=== PATIENT | female | born 1995 | race Two or more races ===

== ENCOUNTER 2016-05-12 16:22 | Emergency (ER) | payer OTHER ==
[~2016-05-12] VITALS: Ht 170.2 cm; Wt 81.6 kg
[2016-05-12 16:42] VITALS: BP 113/79
[2016-05-12] MEDS ORDERED: ALBUTEROL FS 2.5 MG/3 ML VIAL.NEB NEB ONE (17:00)
[2016-05-12] MEDS ORDERED: predniSONE 20 MG TABLET PO ONE (17:00)
[2016-05-12] MEDS ORDERED: ALBUTEROL FS 2.5 MG/3 ML VIAL.NEB ONE (17:18)
[2016-05-12] MEDS ORDERED: predniSONE 20 MG TABLET ONE (17:35)
== END 2016-05-12 17:55 | disposition home or self-care (01) ==
LOC: ER 16:24
DX: J20.9 Acute bronchitis, unspecified (principal); E28.2 Polycystic ovarian syndrome; E11.9 Type 2 diabetes mellitus without complications; F17.200 Nicotine dependence, unspecified, uncomplicated
CPT/HCPCS: 71010; 94640; 99283; 99406; A4606; J7512; Z7610

== ENCOUNTER 2016-11-13 12:21 | Emergency (ER) | payer OTHER ==
[~2016-11-13] VITALS: Ht 160 cm; Wt 72.6 kg
--- NOTE | 2016-11-13 12:28 | NUR ---
PT WHEELED TO ER BED 12. C/O SEVERE R ANKLE PAIN S/P TWIST AND FALL. NO REPORT OF ANY OTHER TRAUMA. PT STATES TOOK IBUPROFEN 1 HOUR AGO W/ NO RELIEF. AWAITING MD CONTRERAS.
--- NOTE | 2016-11-13 12:39 | NUR ---
TIM OUTSIDE MACHINIST APPRENTICE AT BEDSIDE FOR EVAL.
[2016-11-13] MEDS ORDERED: HYDROCODONE/APAP 10/325MG 1 EA TABLET ONE (12:41)
--- NOTE | 2016-11-13 12:51 | NUR ---
RADIOLOGY AT BEDSIDE FOR R FOOT XRAY.
[2016-11-13] MEDS ORDERED: HYDROCODONE/APAP 10/325MG 1 EA TABLET PO ONE (13:00)
[2016-11-13] MEDS ORDERED: MORPHINE SULFATE INJ 4 MG/ML DISP.SYRIN ONE (13:59)
[2016-11-13] MEDS ORDERED: ONDANSETRON 4 MG TAB.RAPDIS ONE (14:00)
[2016-11-13] MEDS ORDERED: ONDANSETRON 4 MG TAB.RAPDIS SL ONE (14:00)
[2016-11-13] MEDS ORDERED: MORPHINE SULFATE INJ 2 MG/ML DISP.SYRIN IM ONE (14:00)
--- NOTE | 2016-11-13 14:03 | NUR ---
PT STILL C/O SEVERE PAIN. MARKII GLASS CHECKER MADE AWARE. MEDICATED ORDERED. SEE EMAR.
--- NOTE | 2016-11-13 14:31 | NUR ---
pt is splinted. Crutches dispensed. Pt instructed on proper use of crutches. Patient able to demonstrate correct use of crutches.Patient discharged to home in stable condition. Written and verbal after care instructions given. Patient verbalizes understanding of instruction.
[2016-11-13 14:36] VITALS: BP 132/94
== END 2016-11-13 14:37 | disposition home or self-care (01) ==
LOC: ER 12:25
DX: S92.321A Displaced fracture of second metatarsal bone, right foot, initial encounter for closed fracture (principal); S92.311A Displaced fracture of first metatarsal bone, right foot, initial encounter for closed fracture; E28.2 Polycystic ovarian syndrome; E11.9 Type 2 diabetes mellitus without complications; W01.0XXA Fall on same level from slipping, tripping and stumbling without subsequent striking against object, initial encounter; Y93.89 Activity, other specified; Y92.89 Other specified places as the place of occurrence of the external cause; Y99.9 Unspecified external cause status
CPT/HCPCS: 73610-TC; 73630-TC; A4606; J2270; Q0162

== ENCOUNTER 2017-11-20 21:42 | Emergency (ER) | payer SELFPAY ==
[~2017-11-20] VITALS: Ht 170.2 cm; Wt 74.4 kg
[2017-11-20 21:52] VITALS: BP 152/92
--- NOTE | 2017-11-20 22:09 | NUR ---
PT COMPLAINING OF R SIDED JAW PAIN, SEEN HERE YESTERDAY GIVEN AMOXICILLIN, CAUSED VOMITING. PT STATES PAIN HAS GOTTEN WORSE SINCE LAST VISIT. PT AAOX4. RESPIRATIONS EVEN AND UNLABORED. PT CRYING FROM PAIN ON RIGHT SIDE OF JAW AND RIGHT EAR. NO SWELLING NOTED. SKIN WARM AND INTACT. WAITING MD CONTRERAS
[2017-11-20] MEDS ORDERED: oxyCODONE/APAP (5/325 MG) 1 UDTAB TABLET PO ONE (22:30)
[2017-11-20] MEDS ORDERED: oxyCODONE/APAP (5/325 MG) 1 UDTAB TABLET ONE (22:40)
== END 2017-11-20 22:43 | disposition home or self-care (01) ==
LOC: ER 21:42
DX: K08.89 Other specified disorders of teeth and supporting structures (principal); E11.9 Type 2 diabetes mellitus without complications; Z98.890 Other specified postprocedural states; Z60.2 Problems related to living alone; Z87.42 Personal history of other diseases of the female genital tract
CPT/HCPCS: 99283; A4606; Z7610